=== PATIENT | female | born 1995 | race Caucasian/White ===

== ENCOUNTER 2020-11-12 20:05 | Outpatient (CLI) | payer OTHER, SELFPAY | END 2020-11-12 21:00 | disposition home or self-care (01) | LOC: OB 11-13 08:20 | PROVIDERS: Referring Provider Obstetrics & Gynecology; Visit Provider Obstetrics & Gynecology | DX: O47.03 False labor before 37 completed weeks of gestation, third trimester (principal); Z3A.35 35 weeks gestation of pregnancy | CPT/HCPCS: 59025; G0378; G0379 ==

== ENCOUNTER 2020-12-06 20:23 | Outpatient (CLI) | payer OTHER, SELFPAY | END 2020-12-06 21:58 | disposition home or self-care (01) | LOC: LABOR 21:58 → OB 12-07 08:05 | PROVIDERS: Referring Provider Obstetrics & Gynecology; Visit Provider Obstetrics & Gynecology | DX: O47.1 False labor at or after 37 completed weeks of gestation (principal); Z3A.39 39 weeks gestation of pregnancy | CPT/HCPCS: 59025; G0378; G0379 ==

== ENCOUNTER 2020-12-08 19:11 | Inpatient (IN) | payer OTHER, SELFPAY ==
[2020-12-08 19:23] VITALS: BP 109/69
--- NOTE | 2020-12-08 19:26 | PM.OBHP.1 ---
OB HPI Date/Time Date of admission: 12/08/20 Date Patient Seen: 12/08/20 Time Patient Seen: 19:26 History of Present Condition Chief complaint: INDUCTION : 2 Para: 0 Estimated Date of Delivery: 12/12/20 Estimated Gestational Age (weeks): 39+3 Narrative: Sophy Abebe is a 25 year old female 2 para 0 at 39 and 3 7th weeks gestation who presents for induction of labor Indications Indication for induction OB: other (Elective) History of Present care: good care, initiated at week # (6), number of visits (10) and pounds weight gain (28) Dating criteria: LMP confirmed by 1st trimester US Ultrasounds: normal 1st trimester US and normal mid trimester US Obstetrical complications: none Preadmission Labs Blood type: B (-) negative -: Antibody screen: negative, GBS status: negative, HBsAG: negative, HIV: negative and RPR/VDLR: negative -: Chlamydia screen: not detected and Gonorrhea screen: not detected -: Rubella: immune and Varicella: immune HCT: 34 PAP: Normal Sequential screen: Normal Urine: negative 1 hr GTT: 142 3 hr GTT: 1 hr (163), 2 hr (128) and 3 hr (112) Prior (ies) History: 1 miscarriage at 7 weeks Evaluation Evaluation Baseline heart rate: 135 Variability: Moderate (11-25) monitor accelerations: Present Monitor Decelerations: Absent Cervical dilation (cm): 1 Cervical effacement (%): 80 station: -1 [facility] Medical History (Updated 12/08/20 @ 19:33 by Barbie Stockton MD) Anxiety Depression Surgical History (Updated 12/08/20 @ 19:28 by Barbie Stockotn MD) [place] teeth extracted Social History Smoking Status: Never smoker Meds Home Medications and Allergies Home Medications Medication Instructions Recorded Confirmed Type No Known Home Medications 12/08/20 12/08/20 History Allergies Allergy/AdvReac Type Severity Reaction Status Date / Time No Known Drug Allergies Allergy Verified 12/08/20 19:50 Exam Vital Signs (past 8 hours): Generally: No acute distress Lungs: Clear to auscultation bilaterally Cardiovascular: Regular rate and rhythm Fundal height: 40 cm Estimated weight: 7-1/2 lb Extremities: No edema, 1+ DTRs Objective Labs Result Diagrams: 12/08/20 20:11 Assessment and Plan Assessment and Plan Assessment and Plan narrative: Assessment: Patient is a 25-year-old 2 para 0 at 39-,3/7 weeks gestation for cervical ripening/induction of labor Plan: Cervidil per protocol Pitocin per protocol in the morning Expected management to spontaneous vaginal delivery Time Spent with Patient Total time spent with greater than 50% in coordination of care (as documented) at patient's floor/unit and/or counseling patient:: 15-24 minutes
[2020-12-08 20:27] LABS: Add Manual Diff / Slide Review NO; Basophils Absolute Auto 100 /uL (0-100); Basophils Percent Auto 0.6 % (0-2); Eosinophils Absolute Auto 200 /uL (0-450); Eosinophils Percent Auto 1.4 % (2-4); Hematocrit 33.9 % (36-46); Hemoglobin 11.5 g/dL (12.0-16.0); Lymphocytes Absolute Auto 2400 /uL (1100-4500); Lymphocytes Percent Auto 19.8 % (25-40); Mean Corpuscular HGB Conc 33.9 % (30-36); Mean Corpuscular Hemoglobin 29.6 PG (26-34); Mean Corpuscular Volume 87.3 fL (80-100); Monocytes Absolute Auto 700 /uL (0-900); Monocytes Percent Auto 5.6 % (3-14); Neutrophils Absolute Auto 8900 /uL (1500-7000); Neutrophils Percent Auto 72.6 % (50-75); Platelet Count 233 X10^3/uL (150-400); Red Blood Cell Count 3.88 X10^6/uL (4.0-5.2); Red Cell Distribution Width 13.8 % (11.6-14.8); White Blood Cell Count 12.2 X10^3/uL (4.5-11.0)
[2020-12-08] MEDS: DINOPROSTONE VAG (CERVIDIL) 10 MG VAG (22:06)
[2020-12-08 23:42] LABS: COVID19 - ADMIT (NP swab/PCR) Negative (Negative)
[2020-12-09 01:05] LABS: COVID19 - ADMIT (NP swab/PCR) Negative (Negative)
[2020-12-09] MEDS: LACTATED RINGERS 1,000 ML 100 ML IV (08:33)
[2020-12-09] MEDS: OXYTOCIN PREMIX 30 UNIT/500 ML PLAST..BAG IV (08:34)
--- NOTE | 2020-12-09 18:45 | PM.OBPNLAB ---
Date/Time Date Patient Seen: 12/09/20 Time Patient Seen: 11:25 Pain Control Pain control: tolerating well Pelvic Exam Dilation (cm): 3 Effacement (%): 85 station: -1 Contractions Contractions on admission: regular Monitor mode: External Pitocin rate (mU/min): 5 Contraction frequency (min): 3 Contraction duration (min): 1 Contraction pattern: Regular Contraction intensity: Strong/Firm Status status: Category l Heart Rate Baseline: 135 Monitor Accelerations: Present Monitor Decelerations: Absent Monitor Variability: Moderate Assessment and Plan Assessment: active labor Plan: other (AROM with clear amniotic fluid, epidural prn)
--- NOTE | 2020-12-09 18:47 | PM.OBPRVD ---
Events: Labor Induction Labor & Delivery Delivery date: 12/09/20 Cervical ripening method: per Cervidil protocol Induction method: per pitocin protocol Delivery augmentation: rupture of membranes Delivery monitor: external FHT and external uterine Route of delivery: Episiotomy description: None L&D Laceration Description: Vaginal - 1st Degree and Superficial (Right labial) Delivery repair: vicryl and chromic Estimated blood loss (mL): 150 Anesthesia Type: Epidural Complications: None Narrative: Patient complete and pushed for 1 hour and 30 minutes. At 5:55 p.m., a live female delivered spontaneously over an intact perineum in the ZOE presentation. No nuchal cord. The remainder of the body delivered without difficulty and was placed on mom's abdomen. The cord was double clamped and cut. Cord bloods were obtained. Pitocin was given in the IV fluids. The placenta delivered intact with a three-vessel cord at 6:02 p.m. fundus massaged to firm. A first-degree vaginal and right labial laceration were repaired with 2-0 and 3-0 chromic in the usual fashion. Hemostasis was achieved. Apgars 8 at 1 minute and 9 at 5 minutes. Epidural analgesia. . Mom and stable to recovery. Baby 1: gender: Female Presentation: vertex Position: Right Occiput Anterior Placenta delivery description: Spontaneous Cord Vessel Description: 3 Vessels score (1 min): 8 score (5 min): 9 weight: 8 lb 0.5 oz Plan for aftercare: Routine care
[2020-12-09] MEDS: ACETAMINOPHEN 325 MG TABLET 650 MG PO (21:11)
[2020-12-10 06:38] LABS: Hematocrit 28.2 % (36-46); Hemoglobin 9.9 g/dL (12.0-16.0)
[2020-12-10] MEDS: ACETAMINOPHEN 325 MG TABLET 650 MG PO ×2 (08:37→19:50)
[2020-12-10] MEDS: DOCUSATE 100 MG CAPSULE PO (08:37)
[2020-12-10] MEDS: IBUPROFEN 600 MG TABLET PO ×2 (08:38→19:51)
[2020-12-10] MEDS: PRENATAL VIT,CALC/IRON/FOLIC 1 TABLET 1 TAB PO (08:39)
[2020-12-10] MEDS: RHO(D) IMMUNE GLOBULIN 1,500 UNIT SYRINGE 1500 UNIT IM (11:02)
--- NOTE | 2020-12-10 18:54 | P.PNOB_ITS ---
Subjective - OB Subjective Patient comments: no complaints [place] baby status: doing well and bottle feeding well feeding status: exclusively bottle feeding Date Patient Seen: 12/10/20 Time Patient Seen: 17:30 Interval history: Patient is a 25-year-old 2 para 1 day # 1 status post spontaneous vaginal delivery. Bottle feeding. Some pain at perineum. Exam Vital Signs (past 8 hours): Generally: Patient walking around in room, no acute distress Fundus: Firm at U -1 Extremities: No edema, negative Homans Objective Labs Result Diagrams: 12/10/20 06:24 Labs: Laboratory Results - last 24 hr 12/10/20 12/10/20 06:24 06:24 Hgb 9.9 L Hct 28.2 L Maternal Bleed Negative Assessment & Plan Plan day: 1 plan OB: routine care Time Spent With Patient Time: Total time spent is greater than 50% in coordination of care (as documented) at patient's floor/unit and/or counseling patient: Time with patient: less than 15 minutes
--- NOTE | 2020-12-11 07:36 | PM.OBDS.1 ---
Discharge Providers Provider Date of admission: 12/08/20 19:11 Discharge Date: 12/11/20 Consults: 12/10/20 18:40 Consult to Health Information Technologist Routine Comment: Discharge provider: Barbie Stockton MD Summary Hospital Course Date Patient Seen: 12/11/20 Time Patient Seen: 07:36 Diagnoses: 39 and 3 7th weeks gestation Induction of labor with Pitocin Artificial rupture of membranes Epidural analgesia Spontaneous vaginal delivery Hospital Course: Patient is a 25-year-old 2 para 1 who presented at 39-,3/7 weeks gestation for induction of labor with Pitocin. She had an artificial rupture of membranes. She received an epidural for pain management. She progressed to complete dilation and had a spontaneous vaginal delivery without complication. Her course is unremarkable. She is bottle feeding. Bleeding is tapering. Peripartum Data Infant Delivery Method: Natural Vaginal Laceration Description: Vaginal - 1st Degree, Labial and Superficial Episiotomy description: None Procedures: Induction of labor with Pitocin Artificial rupture of membranes Epidural analgesia Spontaneous vaginal delivery First-degree laceration and superficial labial laceration repair complications: none [place] 1: Gender: Female Disposition of : home Status at Discharge Cognitive/behavioral status at discharge: oriented Functional status at discharge: independent ambulation Overall status at discharge: patient is progressing back to baseline Time Spent with Patient Time attestation: Total time spent providing and/or coordinating discharge services: Time spent: Less than 30 minutes Objective Labs Result Diagrams: 12/10/20 06:24 Labs: Laboratory Results - last 24 hr 12/10/20 06:24 Maternal Bleed Negative Exam Vital Signs (past 8 hours): Generally: Patient lying in bed, no acute distress Fundus: Firm at U -1 Extremities: Negative Homans, no edema Discharge Plan Discharge Plan Patient Disposition: Home Provider Discharge Comment: Call with fever, chills or bleeding vaginally more than a pad in an hour Ibuprofen 600mg every 6 hours as needed for cramping Tylenol 650 mg every 6 hours as needed Discharge orders & Medications Prescriptions: No Action No Known Home Medications RF: 0 Follow up/Referrals: Barbie Stockton MD [Physician] - (Appointment on , January 21 at 2:00 PM for check with ) Diet/Activity/Treatments Diet: Regular Activity: Nothing in the vagina for 6 weeks Skin/Wound/Dressing Care Report to your healthcare provider any signs of infection, such as:: chills, fever, increased pain and unusual drainage Visit Report/Discharge Packet Instructions: DI for Labor and Delivery, Vaginal
[2020-12-11 08:51] VITALS: BP 108/67; PULSE 82; RESP 17; TEMP 36.8
== END 2020-12-11 11:25 | disposition home or self-care (01) | DRG 807 ==
PROVIDERS: Admitting Provider Obstetrics & Gynecology; Referring Provider Obstetrics & Gynecology; Visit Provider Obstetrics & Gynecology
DX: O70.0 First degree perineal laceration during delivery (principal); Z37.0 Single live birth; Z3A.39 39 weeks gestation of pregnancy; Z20.822 Contact with and (suspected) exposure to COVID-19
CPT/HCPCS: 01967; 36415; 59050; 59409; 85014; 85018; 85025; 85461; 86850; 86870; 86900; 86901; 87635; 99222; 99238; C9803; G0379; J2590; J2790

== ENCOUNTER 2021-11-22 12:23 | Emergency (ER) | payer OTHER, SELFPAY ==
[2021-11-22 13:10] VITALS: BP 100/63; PULSE 115; RESP 18; TEMP 37.4; O2SAT 100; BMI 22.4
[2021-11-22 13:50] LABS: Influenza A - CEPHEID Flu A NEGATIVE (NEGATIVE); Influenza B - CEPHEID Flu B NEGATIVE (NEGATIVE); Respiratory Syncytial Virus Negative (Negative)
[2021-11-22 13:51] LABS: COVID-19 CEPHEID PCR (VTM/NP) Negative (Negative)
== END 2021-11-22 14:30 | disposition left against medical advice (07) ==
PROVIDERS: Emergency Provider Emergency Medicine
DX: J02.9 Acute pharyngitis, unspecified (principal)
CPT/HCPCS: 0241U; 87070; 87880; 99282